=== PATIENT | female | born 1955 | race Caucasian/White ===

== ENCOUNTER → 2017-08-03 | Outpatient (CLI) | payer OTHER | LOC: MAMMO 09:56 | PROVIDERS: ATTEND Obstetrics & Gynecology | DX: Z12.31 Encounter for screening mammogram for malignant neoplasm of breast (principal) | CPT/HCPCS: G0202 ==

== ENCOUNTER → 2017-09-26 | Outpatient (CLI) | payer OTHER ==
[~2017-09-26] MED LIST: IOPAMIDOL 370 MG/ML 200 ML INFUS..BTL INJ ONE; SODIUM CHLORIDE 0.9% 50ML 50 ML ONE
[2017-09-26 09:17] LABS: BLOOD UREA NITROGEN 10 mg/dL (7-26); BUN/CREATININE RATIO 12 (6-25); CREATININE, SERUM 0.83 mg/dL (0.57-1.11); EST GLOMERULAR FILTRATION RATE > 60 ML/MIN (60-)
--- NOTE | 2017-09-27 07:33 | Diagnostic Imaging Report ---
CT scan chest. September 26, 2017 Clinical history: Chest pain Technique: Arterial protocol CT chest performed after 100 mL Isovue-370 intravenous contrast. No enteric contrast. Coronal, sagittal and axial images generated from source data. Dose: 168.33 mGy-cm Comparison: None Findings: Lungs: Normal Airways: Normal Pleura: Normal Lymph nodes: Normal Pulmonary arteries: Normal. Pulmonary artery diameter 2 cm. Heart and pericardium: Suspected LVH. Otherwise, normal. Thoracic aorta: Valvular plane: 2.7 cm Sinus of Valsalva: 3.6 cm Sinotubular junction: 2.4 cm Ascending aorta: 4.2 x 4.3 cm Proximal aortic arch: 3.5 cm Distal aortic arch: 2.3 cm Aortic isthmus: 2.3 cm Descending aorta: 2.1 cm Mild atherosclerosis at the arch. No evidence of dissection or intramural hematoma. Classic great vessel branch pattern. Great vessels unremarkable. Skeleton: Normal for age. Soft tissues: Breast augmentation; otherwise, normal. Subdiaphragmatic organs: Unremarkable. Impression: Ascending thoracic aortic ectasia, with a maximal diameter of 4.3 cm. This report was generated with voice-recognition technology. Errors in sales research analyst can occur. Please interpret accordingly and contact a radiologist if there are any questions regarding the report. Signed by: Dr. Akhil Nunez M.D. on 09/27/2017 7:29 AM
== END ==
LOC: CT 08:24
PROVIDERS: ATTEND Internal Medicine Interventional Cardiology
DX: R07.9 Chest pain, unspecified (principal)
CPT/HCPCS: 36415; 71275; 82565; 84520; Q9967

== ENCOUNTER 2021-12-09 15:37 | Emergency (ER) | payer MEDICARE ==
[~2021-12-09] VITALS: Ht 154.9 cm; Wt 58.5 kg
[2021-12-09] MEDS ORDERED: SODIUM CHLORIDE FLUSH 10 ML SYR IV PRN (16:45)
[2021-12-09] MEDS ORDERED: ASPIRIN 325 MG TAB PO ONE (16:45)
[2021-12-09 17:15] LABS: BASOPHILS % 0.2 % (0.0-1.0); EOSINOPHILS % 0.2 % (0.0-6.0); HEMATOCRIT 45.5 % (34.2-44.1); HEMOGLOBIN 14.5 g/dL (12.0-16.0); LYMPHOCYTES # (AUTO) 1.6 (1.0-3.2); LYMPHOCYTES % 11.9 % (18.0-39.1); MEAN CORPUSCULAR HEMOGLOBIN 29.8 pg (28-32); MEAN CORPUSCULAR HGB CONC 31.9 g/dL (31-35); MEAN CORPUSCULAR VOLUME 93.6 fL (81-99); MONOCYTES # (AUTO) 0.8 (0.2-0.8); MONOCYTES % 5.7 % (4.4-11.3); NEUTROPHILS # (AUTO) 10.7 (2.1-6.9); NEUTROPHILS % 81.5 % (38.7-80.0); PLATELET COUNT 469 x10e3/uL (140-360); RED BLOOD COUNT 4.86 x10e6/uL (3.6-5.1); RED CELL DISTRIBUTION WIDTH 11.8 % (11.7-14.4)
[2021-12-09 17:37] LABS: ALANINE AMINOTRANSFERASE 15 IU/L (0-55); ALBUMIN 3.9 g/dL (3.5-5.0); ALBUMIN/GLOBULIN RATIO 1.1 (0.8-2.0); ALKALINE PHOSPHATASE 75 IU/L (40-150); ANION GAP 14.9 mmol/L (8-16); BLOOD UREA NITROGEN 10 mg/dL (7-26); BUN/CREATININE RATIO 12 (6-25); CALCIUM 9.1 mg/dL (8.4-10.2); CARBON DIOXIDE 25 mmol/L (22-29); CHLORIDE 102 mmol/L (98-107); CREATININE, SERUM 0.85 mg/dL (0.57-1.11); EST GLOMERULAR FILTRATION RATE 67 ML/MIN (60-); GLUCOSE 120 mg/dL (74-118); POTASSIUM 3.9 mmol/L (3.5-5.1); SODIUM 138 mmol/L (136-145)
== END 2021-12-09 18:39 | disposition home or self-care (01) ==
LOC: ER 15:41
DX: R07.89 Other chest pain (principal); I10 Essential (primary) hypertension; E03.9 Hypothyroidism, unspecified; R94.31 Abnormal electrocardiogram [ECG] [EKG]
CPT/HCPCS: 36415; 71045; 80053; 84484; 85025; 93005; 99284

== ENCOUNTER → 2022-12-04 | Outpatient (CLI) | payer MEDICARE ==
[~2022-12-04] MED LIST changes: +DICYCLOMINE HCL20 MG PO; +IOPAMIDOL 370 MG/ML 100 ML INFUS..BTL INJ ONE; -IOPAMIDOL 370 MG/ML 200 ML INFUS..BTL INJ ONE; +ONDANSETRON ODT4 MG PO; -SODIUM CHLORIDE 0.9% 50ML 50 ML ONE
[2022-12-04 14:26] LABS: CREATININE, SERUM 0.93 mg/dL (0.57-1.11)
== END ==
LOC: CT 13:38
PROVIDERS: ATTEND Internal Medicine Cardiovascular Disease
DX: I71.9 Aortic aneurysm of unspecified site, without rupture (principal)
CPT/HCPCS: 36415; 71275; 82565; 84520; Q9967

== ENCOUNTER → 2024-05-16 | Outpatient (REF) | payer MEDICARE ==
[~2024-05-16] MED LIST changes: -IOPAMIDOL 370 MG/ML 100 ML INFUS..BTL INJ ONE
== END ==
LOC: CT 13:10
PROVIDERS: ATTEND Family Medicine
DX: R20.0 Anesthesia of skin (principal); G51.0 Bell's palsy
CPT/HCPCS: 70450; 76536

== ENCOUNTER → 2024-06-09 | Outpatient (REF) | payer MEDICARE | LOC: US 14:12 | PROVIDERS: ATTEND Family Medicine | DX: R10.9 Unspecified abdominal pain (principal) | CPT/HCPCS: 76700; 76856 ==